=== PATIENT | male | born 1935 | race Caucasian/White ===

== ENCOUNTER 2016-07-10 05:09 | Inpatient (IN) | payer MEDICARE ==
--- NOTE | 2016-07-09 16:55 | Pre-Procedure Note/Attestation ---
Pre-Procedure Note/Attestation Complete Prior to Procedure Planned Procedure: right Procedure Narrative: Rt total knee arthroplasty Indications for Procedure Pre-Operative Diagnosis: rt knee arthritis Attestation I attest that I discussed the nature of the procedure; its benefits; risks and complications; and alternatives (and the risks and benefits of such alternatives ), prior to the procedure, with the patient (or the patient's legal outside sales account representative). I attest that, if there was a reasonable possibility of needing a blood transfusion, the patient (or the patient's legal outside sales account representative) was given the [facility] standardized written summary, pursuant to the [place] Blood Safety Act ([place] Health and Safety Code # 1645, as amended). I attest that I re-evaluated the patient just prior to the surgery and that there has been no change in the patient's H&P, except as documented below:NONE NELSON ANDERSON Jul 09, 2016 16:55
[2016-07-10] VITALS (13 sets, daily range): BP systolic 128–150; BP diastolic 62–69
[~2016-07-10] VITALS: Ht 172.7 cm; Wt 77.6 kg
[~2016-07-10 05:09] MED LIST: ACYCLOVIR400 MG ORAL; ASPIRIN325 MG ORAL; CRESTOR10 M2 ORAL; EPZICOM TABLET1 EAC1 ORAL; HYDROCHLOROTHIA25 MG ORAL; METOPROLOL SUCC50 MG ORAL; NEVIRAPINE ER400 MG PO; PROSCAR5 MG ORAL; TAMSULOSIN HCL0.4 MG ORAL; VIT C PO
[2016-07-10] MEDS ORDERED: oxyCONTIN 20mg tab ORAL ONE (06:00)
[2016-07-10] MEDS ORDERED: celeBREX 200mg Cap **SURGERY PATIENTS ONLY ORAL ONE (06:00)
[2016-07-10] MEDS ORDERED: ceFAZolin 1gm/50ml Premix 50 ML IV ONE (06:00)
[2016-07-10] MEDS ORDERED: Ropivacaine 5mg/ml Vial 20ml INJ ONE (06:49)
[2016-07-10] MEDS ORDERED: Dexamethasone 4mg/ml vial ONE (07:00)
[2016-07-10] MEDS ORDERED: Propofol 10mg/ml 20ml IV ONE (07:00)
[2016-07-10] MEDS ORDERED: NS Irrig 1000ml ONE (07:00)
[2016-07-10] MEDS ORDERED: Sterile Water For Irrig 2000ml IRRIG ONE (07:00)
[2016-07-10] MEDS ORDERED: Midazolam 2mg/2ml Inj ONE (07:00)
[2016-07-10] MEDS ORDERED: fentaNYL 100 mcg/2 mL IV ONE (07:00)
[2016-07-10] MEDS ORDERED: NS Irrig 2000ml IRRIG ONE (07:00)
[2016-07-10] MEDS ORDERED: LR 1000ml ONE (07:00)
[2016-07-10] MEDS ORDERED: LR 1000ml 1,000 ML IVLG SCH (07:31)
[2016-07-10] MEDS ORDERED: Labetalol 5mg/ml 20ml vial IV PRN (07:45)
[2016-07-10] MEDS ORDERED: Meperidine 25mg/ml Inj IV PRN (07:45)
[2016-07-10] MEDS ORDERED: Hydromorphone 0.5mg/0.5ml inj IVP PRN (07:45)
[2016-07-10] MEDS: Bacitracin 50000 Units Vial ONE ×2 (07:49→08:20)
--- NOTE | 2016-07-10 07:52 | Anethesia Preoperative Eval ---
Anesthesia Pre-op PMH/ROS General Date of Evaluation: Jul 10, 2016 Time of Evaluation: 06:50 Anesthesiologist: Karissa ASA Score: ASA 3 Mallampati Score Class I : Soft palate, uvula, fauces, pillars visible Class II: Soft palate, uvula, fauces visible Class III: Soft palate, base of uvula visible Class IV: Only hard plate visible Mallampati Classification: Class II Surgeon: Phillip Diagnosis: Right knee osteoarthritis Surgical Procedure: Right total knee arthroplasty Anesthesia History: none Family History: no anesthesia problems Allergies: Coded Allergies: No Known Allergies (Unverified , 07/05/16) Medications: see eMAR Past Medical History Cardiovascular: Reports: HTN Pulmonary: Denies: COPD, LIA, asthma, other Gastrointestinal/Genitourinary: Denies: CRI, ESRD, GERD, other Neurologic/Psychiatric: Denies: CVA, TIA, dementia, depression/anxiety, other Endocrine: Denies: DM, hypothyroidism, other, steroids HEENT: Denies: [place] (L), [place] (R), cataract (L), cataract (R), glaucoma, other Hematology/Immune: Denies: DVT, anemia, bleeding disorder, other Musculoskeletal/Integumentary: Denies: DDD, DJD, OA, RA, edema, other PMH Narrative: HTN, CAD s/p stent, HIV, BPH PSxH Narrative: Cardiac stent 2001, Left TKR Anesthesia Pre-op Phys. Exam Physician Exam Last Vital Signs Date Time Temp Pulse Resp B/P Pulse Ox O2 Delivery O2 Flow Rate FiO2 07/10/16 05:45 97.9 68 16 149/67 95 Room Air Constitutional: NAD Neurologic: CN 2-12 intact Cardiovascular: RRR Respiratory: CTA Gastrointestinal: S/NT/ND Airway Exam Mallampati Score: Class II MO: full ROM: full Teeth: intact Dentures: no lower, no upper SILVIA ABDALLA D.O. Jul 10, 2016 07:52
[2016-07-10] MEDS ORDERED: Bupivacaine w/Epi 0.5% 30ml Vial INJ ONE (07:59)
--- NOTE | 2016-07-10 09:35 | Brief Operative Note ---
Immediate Post Operative Note Operative Note Chief Complaint: rt knee pain Pre-op Diagnosis: rt knee arthritis Procedure: rt TKA Post-op Diagnosis: same as pre-op Findings: consistent w/pre-op dx studies Surgeon: md Phillip [employer] Internship: [employer] Anesthesiologist: MD Karissa Anesthesia: general, local Specimen: yes Complications: none Condition: stable Estimated Blood Loss: minimal Drains: none Implant(s) used?: Yes - MIRIAN Kay Jul 10, 2016 09:35
--- NOTE | 2016-07-10 09:48 | Immediate Post-Op Evaluation ---
Immediate Post-Op Evalulation Immediate Post-Op Evalulation Procedure: Right total knee arthroplasty Date of Evaluation: Jul 10, 2016 Time of Evaluation: 09:47 IV Fluids: 1200ml Blood Products: none Estimated Blood Loss: 100ml Urinary Output: 250ml Blood Pressure Systolic: 144 Blood Pressure Diastolic: 65 Pulse Rate: 77 Respiratory Rate: 16 O2 Sat by Pulse Oximetry: 98 Temperature (Fahrenheit): 98 Pain Score (1-10): 0 Nausea: No Vomiting: No Complications none Patient Status: awake, reacts Hydration Status: adequate Drug: ancef 1gm Given Within 1 Hr of Incision: Yes Time Given: 07:30 SILVIA ABDALLA D.O. Jul 10, 2016 09:48
[2016-07-10] MEDS ORDERED: HYDROmorphone 1mg/ml Carpuject SUBQ PRN (12:00)
[2016-07-10] MEDS ORDERED: Norco 5mg/325mg tab ORAL PRN (12:00)
[2016-07-10] MEDS ORDERED: Norco 7.5mg/325mg tab ORAL PRN (12:00)
[2016-07-10] MEDS ORDERED: Milk of Magnesia 30ml Ud ORAL PRN (12:00)
[2016-07-10] MEDS: oxyCONTIN 20mg tab ORAL SCH ×2 (12:05→22:16)
[2016-07-10] MEDS: Docusate 100mg cap ORAL SCH ×2 (12:06→17:35)
--- NOTE | 2016-07-10 12:39 | Diagnostic Imaging Report ---
Indications: Postoperative Technique: Two views of the knee Comparison:None Findings: Two postoperative views of the right knee demonstrate total knee arthroplasty, good anatomic alignment of the prosthesis. There is postsurgical soft tissue air Impression: Postoperative right knee, no unusual features.
[2016-07-10] MEDS: D5 1/2NS w/KCl 20mEq 1,000 ML IV SCH (13:07)
[2016-07-10] MEDS: ASCORBIC ACID ORAL SCH ×2 (13:44→16:14)
[2016-07-10] MEDS: [UNRECOGNIZED DRUG - OTHER] ORAL SCH ×2 (13:44→16:14)
[2016-07-10] MEDS: ceFAZolin sod 1 GM in D5W 55 ML IV SCH (16:13)
[2016-07-10] MEDS: Tamsulosin 0.4mg cap ORAL SCH (22:15)
[2016-07-10] MEDS: CRESTOR 10 MG ORAL SCH (22:16)
[2016-07-11] VITALS: BP 146/69
[2016-07-11] MEDS: ceFAZolin sod 1 GM in D5W 55 ML IV SCH (00:13)
[2016-07-11 04:00] VITALS: BP 156/72
[2016-07-11] MEDS: D5 1/2NS w/KCl 20mEq 1,000 ML IV SCH ×2 (04:38→16:42)
[2016-07-11 07:03] LABS: BASOPHILS % (AUTO) 0.1 % (0.0-2.0); EOSINOPHILS % (AUTO) 0.1 % (0.0-3.0); LYMPHOCYTES % (AUTO) 12.1 % (20.0-45.0); MEAN CORPUSCULAR HEMOGLOBIN 38.1 PG (27.0-31.0); MEAN CORPUSCULAR HGB CONC 36.8 G/DL (32.0-36.0); MEAN CORPUSCULAR VOLUME 104 FL (80-99); MEAN PLATELET VOLUME 7.7 FL (6.5-10.1); MONOCYTES % (AUTO) 10.2 % (1.0-10.0); NEUTROPHILS % (AUTO) 77.5 % (45.0-75.0); PLATELET COUNT 160 K/UL (150-450); RED BLOOD COUNT 3.51 M/UL (4.70-6.10); RED CELL DISTRIBUTION WIDTH 11.7 % (11.6-14.8); WHITE BLOOD COUNT 9.7 K/UL (4.8-10.8)
[2016-07-11] MEDS: ASCORBIC ACID ORAL SCH ×3 (07:37→17:36)
[2016-07-11] MEDS: [UNRECOGNIZED DRUG - OTHER] ORAL SCH ×3 (07:37→17:36)
[2016-07-11 08:00] VITALS: BP 138/57
--- NOTE | 2016-07-11 08:04 | Orthopedic Progress Note ---
Orthopedic - Progress Note Subjective Symptoms: improved - pain last night. improved today Objective Vital Signs Laboratory Tests Test 07/11/16 05:30 White Blood Count 9.7 K/UL (4.8-10.8) Red Blood Count 3.51 M/UL (4.70-6.10) L Hemoglobin 13.4 G/DL (14.2-18.0) L Hematocrit 36.4 % (42.0-52.0) L Mean Corpuscular Volume 104 FL (80-99) H Mean Corpuscular Hemoglobin 38.1 PG (27.0-31.0) H Mean Corpuscular Hemoglobin Concent 36.8 G/DL (32.0-36.0) H Red Cell Distribution Width 11.7 % (11.6-14.8) Platelet Count 160 K/UL (150-450) Mean Platelet Volume 7.7 FL (6.5-10.1) Neutrophils (%) (Auto) 77.5 % (45.0-75.0) H Lymphocytes (%) (Auto) 12.1 % (20.0-45.0) L Monocytes (%) (Auto) 10.2 % (1.0-10.0) H Eosinophils (%) (Auto) 0.1 % (0.0-3.0) Basophils (%) (Auto) 0.1 % (0.0-2.0) Last 24 Hour Vital Signs Date Time Temp Pulse Resp B/P Pulse Ox O2 Delivery O2 Flow Rate FiO2 07/11/16 04:00 97.9 71 18 156/72 96 Nasal Cannula 2.0 07/11/16 00:00 97.9 65 18 146/69 97 Nasal Cannula 2.0 07/10/16 20:00 97.9 68 18 150/64 98 Nasal Cannula 3.0 07/10/16 16:00 97.5 71 19 132/62 95 Nasal Cannula 3.0 07/10/16 16:00 98 Nasal Cannula 3.0 32 07/10/16 16:00 Nasal Cannula 3.0 32 07/10/16 12:02 97.5 71 19 128/63 98 Room Air 07/10/16 11:00 97.7 71 18 128/63 95 Nasal Cannula 3.0 07/10/16 11:00 98.0 07/10/16 10:45 98.0 76 18 136/67 96 Nasal Cannula 3.0 07/10/16 10:30 73 17 129/68 93 Nasal Cannula 3.0 07/10/16 10:15 76 19 148/69 94 Nasal Cannula 3.0 07/10/16 10:00 77 16 148/69 97 Simple Mask 6.0 07/10/16 09:55 77 16 144/69 97 Simple Mask 6.0 07/10/16 09:50 79 12 140/67 96 Simple Mask 6.0 07/10/16 09:48 77 16 98 07/10/16 09:45 76 19 144/65 97 Simple Mask 6.0 07/10/16 09:40 98.7 77 13 139/68 99 Simple Mask 6.0 I&O Intake and Output 07/10/16 07/11/16 19:00 07:00 Intake Total 2435 ml 705 ml Output Total 800 ml 2950 ml Balance 1635 ml -2245 ml Intake Oral 360 ml 480 ml IV Total 2075 ml 225 ml Output Urine Total 700 ml 2950 ml Estimated Blood Loss 100 ml Wound: clean, dry, intact Drains: none Neuro Status: normal Vascular Status: normal Additional Comments Xray excellent Assessment Post-op Diagnosis POD 1 Procedure Performed rt TKA Plan Plan: PT, pain management, discharge plan - [facility] on saturday MIRIAN GRANT Jul 11, 2016 08:04
[2016-07-11] MEDS: oxyCONTIN 20mg tab ORAL SCH ×2 (08:41→20:24)
[2016-07-11] MEDS: NEVIRAPINE 400 MG ORAL SCH (08:41)
[2016-07-11] MEDS: Docusate 100mg cap ORAL SCH ×3 (08:41→17:36)
[2016-07-11] MEDS: celeBREX 200mg Cap **SURGERY PATIENTS ONLY ORAL SCH (08:41)
[2016-07-11] MEDS: LUBRICANT EYE DROPS BOTH EYES PRN (08:42)
[2016-07-11] MEDS: LUBRICANT EYE DROPS BOTH EYES SCH (08:42)
[2016-07-11] MEDS: [UNRECOGNIZED DRUG - SUPPLY] BOTH EYES SCH (08:42)
[2016-07-11] MEDS: Epzicom tab ORAL SCH (08:43)
[2016-07-11] MEDS: Enoxaparin 30mg Inj SUBQ SCH ×2 (08:49→20:27)
[2016-07-11 12:00] VITALS: BP 134/58
--- NOTE | 2016-07-11 14:06 | 48 Hour Post Anesthesia Eval ---
Post Anesthesia Evaluation Procedure: Right total knee arthroplasty Date of Evaluation: Jul 11, 2016 Time of Evaluation: 14:05 Blood Pressure Systolic: 150 0: 80 Pulse Rate: 74 Respiratory Rate: 20 Temperature (Fahrenheit): 98 O2 Sat by Pulse Oximetry: 98 Airway: patent Nausea: No Vomiting: No Pain Intensity: 2 Hydration Status: adequate Cardiopulmonary Status: stable Mental Status/LOC: patient returned to baseline Follow-up Care/Observations: na Post-Anesthesia Complications: na Follow-up care needed: N/A HERMELINDA SCHUMACHER M.D. Jul 11, 2016 14:06
[2016-07-11 16:08] VITALS: BP 137/56
--- NOTE | 2016-07-11 18:38 | Operative Note - Dictated ---
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 PROCEDURE: Right total knee arthroplasty using [employer] Person[employer] system, size 8 femur, size G tibia, 10 mm tibial poly insert, and a 35 mm patellar all poly component all cemented. SURGEON: Pietro Fisher M.D. COATING INSPECTOR: Georgiana Johnson PA-C. ANESTHESIOLOGIST: Dr. Hancock. ANESTHESIA: General endotracheal anesthesia combined with adductor block. ESTIMATED BLOOD LOSS: Less than 100 mL. TOURNIQUET TIME: 70 minutes. COMPLICATIONS: None. BRIEF HISTORY: The patient is a pleasant 81-year-old gentleman who has had ongoing right knee pain. He had valgus deformity. He has had decreased range of motion and stiffness. He failed all nonoperative treatment. After full discussion of the risks and benefits of the surgery and complications associated with it including infection, bleeding, neurovascular complication, possibility of loss of motion, DVT, PEs, possible need for resection arthroplasty or revision arthroplasty, and other complications that may arise as well as wound dehiscence and requiring further surgery and debridement, he opted for surgical treatment as described above. OPERATIVE PROCEDURE: The patient was brought to the operating room and was placed supine. All pressure points were well padded. General endotracheal anesthesia was induced. An adductor block was performed. The right knee was prepped and draped in usual sterile fashion. The leg was exsanguinated and tourniquet was inflated to 275 mmHg. A standard anterior approach to the knee was undertaken and medial parapatellar arthrotomy was performed. The kneecap was everted. Medial releases were performed. Knee was flexed and ACL and PCL were resected. Intramedullary access was obtained using a drill. An intramedullary guide was placed in. A distal 5-degree valgus cut was performed without any complication. A sizing block was then applied and size 8 appeared to be the right size. The cutting block was placed in about 3 degrees of external rotation. Judging from intercondylar access, anterior, posterior, and chamfer cuts were performed. At this point, the femoral component was then applied and appeared to be an excellent fit. Peg holes were drilled. At this point, care was given to the tibia. Posterior, medial, and lateral retractors were placed in. Menisci were removed. The extramedullary guide was applied and while protecting the ligaments as well as patellar tendon, 2 mm was taken off the lateral side which was the most involved side. The slope was re-created and an anatomical axis was re-created. The cut was performed without any complications. Wounds were thoroughly irrigated. The flexion and extension gap was checked and appeared to be equal. At this point, a spinal needle was placed and the posterior capsule was injected with 0.5% Marcaine with epinephrine. At this point, sizing of the tibia was performed and size G appeared to be the right size. The tibial component was placed in about 3 degrees of external rotation and central hole and the stem was then punched in without any complications. At this point, a 10 mm poly was applied and there was full flexion, full extension, excellent stability at 0, 30 degrees, 45 degrees, and 90 degrees of range of motion. At this point, care was given to the patella. The patella was everted. It measured 26 mm in thickness. At this point, a freehand cut of the patella was performed and 50 mm patella was remaining. At this point, peg holes were drilled and 35 mm patella appeared to be the right size. A 35 mm patella was then applied and clamped down. This locked the patellar component in good position. At this point, the knee was placed through range of motion. There was excellent patellofemoral tracking. At this point, all wounds were thoroughly irrigated. All trial components were removed. The cement was mixed and the tibial component, femoral component, and patellar components were cemented without any complications. All excess cement was removed. At this point, sizing was performed and 10 mm poly appeared to be the right size. Therefore at this point, a 10 mm poly was locked in without any complication. Range of motion was again excellent as described and there was excellent patellofemoral tracking as well as very good stability at 0, 30 degrees, 45 degrees, and 90 degrees of flexion. At this point, all wounds were thoroughly irrigated using copious amount of fluid. The tourniquet was deflated. Bleeders were all stopped. Extensor mechanism was closed using #1 Vicryl suture. Subcutaneous tissue was closed using 2-0 Vicryl suture. Skin was closed using 3-0 Monocryl suture as well as Dermabond. The patient was placed in a sterile dressing and a knee immobilizer, and was taken to recovery room in stable condition. Pietro Fisher M.D. DR: Saeed JOB#: [id number] CC: ASHLEY
[2016-07-11 20:00] VITALS: BP 124/51
[2016-07-11] MEDS: CRESTOR 10 MG ORAL SCH (20:25)
[2016-07-11] MEDS: Tamsulosin 0.4mg cap ORAL SCH (20:26)
[2016-07-12] MEDS: D5 1/2NS w/KCl 20mEq 1,000 ML IV SCH (04:39)
[2016-07-12 07:21] LABS: BASOPHILS % (AUTO) 0.3 % (0.0-2.0); EOSINOPHILS % (AUTO) 0.2 % (0.0-3.0); LYMPHOCYTES % (AUTO) 14.9 % (20.0-45.0); MEAN CORPUSCULAR HEMOGLOBIN 36.2 PG (27.0-31.0); MEAN CORPUSCULAR HGB CONC 34.3 G/DL (32.0-36.0); MEAN CORPUSCULAR VOLUME 106 FL (80-99); MEAN PLATELET VOLUME 7.7 FL (6.5-10.1); MONOCYTES % (AUTO) 12.1 % (1.0-10.0); NEUTROPHILS % (AUTO) 72.6 % (45.0-75.0); PLATELET COUNT 151 K/UL (150-450); RED BLOOD COUNT 3.28 M/UL (4.70-6.10); WHITE BLOOD COUNT 9.2 K/UL (4.8-10.8)
--- NOTE | 2016-07-12 07:27 | Orthopedic Progress Note ---
Orthopedic - Progress Note Subjective Additional Comments Doing well with his knee. Slowly ambulating. Using the CPM. Pain control with po and im shots Objective Vital Signs Last 24 Hour Vital Signs Date Time Temp Pulse Resp B/P Pulse Ox O2 Delivery O2 Flow Rate FiO2 07/11/16 20:00 98.2 71 20 124/51 92 Room Air 07/11/16 16:08 98.1 67 19 137/56 90 Room Air 07/11/16 14:06 74 20 98 07/11/16 12:00 97.9 69 18 134/58 93 Room Air 07/11/16 08:41 71 156/72 07/11/16 08:00 97.8 70 18 138/57 96 Room Air I&O Intake and Output 07/11/16 07/12/16 19:00 07:00 Intake Total 585 ml 825 ml Output Total 375 ml Balance 210 ml 825 ml Intake Oral 360 ml IV Total 225 ml 825 ml Output Urine Total 375 ml # Voids 2 Wound: clean, dry Drains: hemovac Neuro Status: normal Vascular Status: normal Assessment Post-op Diagnosis Doing well s/p Right TKA Plan Plan: PT, pain management, discharge plan Additional Comments Anticipate D/C to rehab tomorrow. Dressing Changes today NELSON ANDERSON Jul 12, 2016 07:27
[2016-07-12] MEDS: [UNRECOGNIZED DRUG - OTHER] ORAL SCH ×3 (07:50→16:47)
[2016-07-12] MEDS: ASCORBIC ACID ORAL SCH ×3 (07:50→16:47)
[2016-07-12 08:00] VITALS: BP 129/59
[2016-07-12] MEDS: Epzicom tab ORAL SCH (08:50)
[2016-07-12] MEDS: NEVIRAPINE 400 MG ORAL SCH (08:50)
[2016-07-12] MEDS: celeBREX 200mg Cap **SURGERY PATIENTS ONLY ORAL SCH (08:52)
[2016-07-12] MEDS: Docusate 100mg cap ORAL SCH ×3 (08:52→17:51)
[2016-07-12] MEDS: LUBRICANT EYE DROPS BOTH EYES PRN (08:54)
[2016-07-12] MEDS: [UNRECOGNIZED DRUG - SUPPLY] BOTH EYES SCH (08:54)
[2016-07-12] MEDS: LUBRICANT EYE DROPS BOTH EYES SCH (08:54)
[2016-07-12] MEDS: oxyCONTIN 20mg tab ORAL SCH ×2 (08:55→21:00)
[2016-07-12] MEDS: Enoxaparin 30mg Inj SUBQ SCH ×2 (08:59→20:17)
[2016-07-12 12:00] VITALS: BP 116/55
[2016-07-12 15:53] VITALS: BP 130/70
[2016-07-12 20:00] VITALS: BP 126/54
[2016-07-12] MEDS: Tamsulosin 0.4mg cap ORAL SCH (20:14)
[2016-07-12] MEDS: CRESTOR 10 MG ORAL SCH (20:16)
[2016-07-13 04:00] VITALS: BP 135/59
[2016-07-13] MEDS: ASCORBIC ACID ORAL SCH ×3 (06:38→17:23)
[2016-07-13] MEDS: [UNRECOGNIZED DRUG - OTHER] ORAL SCH ×3 (06:38→17:23)
[2016-07-13 06:52] LABS: BASOPHILS % (AUTO) 0.6 % (0.0-2.0); EOSINOPHILS % (AUTO) 0.4 % (0.0-3.0); LYMPHOCYTES % (AUTO) 16.4 % (20.0-45.0); MEAN CORPUSCULAR HEMOGLOBIN 35.8 PG (27.0-31.0); MEAN CORPUSCULAR HGB CONC 34.3 G/DL (32.0-36.0); MEAN CORPUSCULAR VOLUME 104 FL (80-99); MEAN PLATELET VOLUME 7.2 FL (6.5-10.1); NEUTROPHILS % (AUTO) 72.8 % (45.0-75.0); PLATELET COUNT 130 K/UL (150-450); RED BLOOD COUNT 3.06 M/UL (4.70-6.10); RED CELL DISTRIBUTION WIDTH 11.8 % (11.6-14.8); WHITE BLOOD COUNT 7.8 K/UL (4.8-10.8)
[2016-07-13 08:00] VITALS: BP 132/60
--- NOTE | 2016-07-13 08:27 | Orthopedic Progress Note ---
Orthopedic - Progress Note Subjective Symptoms: improved Objective Vital Signs Laboratory Tests Test 07/13/16 06:30 White Blood Count 7.8 K/UL (4.8-10.8) Red Blood Count 3.06 M/UL (4.70-6.10) L Hemoglobin 10.9 G/DL (14.2-18.0) L Hematocrit 31.8 % (42.0-52.0) L Mean Corpuscular Volume 104 FL (80-99) H Mean Corpuscular Hemoglobin 35.8 PG (27.0-31.0) H Mean Corpuscular Hemoglobin Concent 34.3 G/DL (32.0-36.0) Red Cell Distribution Width 11.8 % (11.6-14.8) Platelet Count 130 K/UL (150-450) L Mean Platelet Volume 7.2 FL (6.5-10.1) Neutrophils (%) (Auto) 72.8 % (45.0-75.0) Lymphocytes (%) (Auto) 16.4 % (20.0-45.0) L Monocytes (%) (Auto) 10.0 % (1.0-10.0) Eosinophils (%) (Auto) 0.4 % (0.0-3.0) Basophils (%) (Auto) 0.6 % (0.0-2.0) Last 24 Hour Vital Signs Date Time Temp Pulse Resp B/P Pulse Ox O2 Delivery O2 Flow Rate FiO2 07/13/16 04:56 98.1 07/13/16 04:00 99.5 101 20 135/59 92 Room Air 07/12/16 20:00 98.2 111 19 126/54 91 Room Air 07/12/16 15:53 98.1 70 18 130/70 94 Room Air 07/12/16 12:00 98.1 72 18 116/55 91 Room Air 07/12/16 08:51 95 129/59 I&O Intake and Output 07/12/16 07/13/16 19:00 07:00 Intake Total 360 ml Output Total 1100 ml Balance -740 ml Intake Oral 360 ml Output Urine Total 1100 ml # Voids 5 # Bowel Movements 2 Wound: clean, dry, intact Drains: none Neuro Status: normal Vascular Status: normal Assessment Post-op Diagnosis POD 3 Procedure Performed rt TKA Plan Plan: discharge plan - to [facility] today./ f/u 7-10 days MIRIAN GRANT Jul 13, 2016 08:27
[2016-07-13] MEDS: [UNRECOGNIZED DRUG - SUPPLY] BOTH EYES SCH (08:30)
[2016-07-13] MEDS: LUBRICANT EYE DROPS BOTH EYES SCH (08:31)
[2016-07-13] MEDS: celeBREX 200mg Cap **SURGERY PATIENTS ONLY ORAL SCH (08:32)
[2016-07-13] MEDS: oxyCONTIN 20mg tab ORAL SCH ×2 (08:32→21:00)
[2016-07-13] MEDS: NEVIRAPINE 400 MG ORAL SCH (08:33)
[2016-07-13] MEDS: Epzicom tab ORAL SCH (08:33)
[2016-07-13] MEDS: Enoxaparin 30mg Inj SUBQ SCH ×2 (08:34→21:00)
[2016-07-13] MEDS: Docusate 100mg cap ORAL SCH ×3 (08:34→17:23)
--- NOTE | 2016-07-13 09:48 | Discharge Summary 2 SIG ---
DATE OF ADMISSION: 07/10/2016 DATE OF DISCHARGE: 07/13/2016 HOSPITAL COURSE: The patient is a pleasant 81-year-old gentleman who had right knee arthritis and was admitted after right total knee arthroplasty. The patient tolerated the procedure well and had a benign hospital course. He was seen by physical therapy and pain was well controlled at the time of discharge. On 07/13/2016, the patient being discharged to rehabilitation center at [facility] inpatient physical therapy and rehabilitation before being discharge to home. On date of discharge, the patient's vital signs were stable. Laboratory work was stable and he was tolerating good oral diet and oral pain medication. He will be discharged to rehabilitation and will follow up with him in the office in 7 to 10 days. Pietro Fisher M.D. I have been assigned to dictate discharge summary on this account and I was not involved in the patient's management. An Rahman DR: GRANT JOB#: [id number] CC:
[2016-07-13] MEDS ORDERED: LOVENOX10 MG SUBQ (10:53)
[2016-07-13] MEDS ORDERED: COLACE100 MG ORAL (10:53)
[2016-07-13] MEDS ORDERED: FERROUS SULFAT325 MG ORAL (10:54)
[2016-07-13] MEDS ORDERED: CELEBREX200 MG ORAL (10:54)
[2016-07-13] MEDS ORDERED: NORCO 5-325 TA1 EACH ORAL (10:55)
[2016-07-13] MEDS ORDERED: NORCO 7.5-3251 EACH ORAL (10:56)
[2016-07-13] MEDS ORDERED: RESTORIL7.5 MG ORAL (10:57)
[2016-07-13] MEDS ORDERED: OXYCONTIN20 MG ORAL (10:57)
[2016-07-13 11:58] VITALS: BP 113/50
[2016-07-13 16:00] VITALS: BP 128/88
--- NOTE | 2016-07-13 19:34 | Consultation ---
Consult Note Consult Note S: Patient followed by me as outpatient for chronic stable HIV infection. He has had chronic knee pain for years and decided to have a TKR on the right; this was done by Dr. Fisher on July 10. The surgery was uneventful, as was the postoperative course until this morning when he had a temp to 101.7. He was given tylenol by the nurse and has been afebrile since. He complained of feeling "sweaty" in the morning but has no current complaints other than the expected pain related to the surgery. O: WNWD male NAD. VSS with one fever spike noted above. HEENT: nc/at; ptosis OS Lungs: clear Cor: reg Abd: soft Ext: right knee bandaged but reportedly wound was clear when dressed this morning Labs Test 07/11/16 05:30 07/12/16 06:00 07/13/16 06:30 White Blood Count 9.7 K/UL (4.8-10.8) 9.2 K/UL (4.8-10.8) 7.8 K/UL (4.8-10.8) Red Blood Count 3.51 M/UL (4.70-6.10) 3.28 M/UL (4.70-6.10) 3.06 M/UL (4.70-6.10) Hemoglobin 13.4 G/DL (14.2-18.0) 11.9 G/DL (14.2-18.0) 10.9 G/DL (14.2-18.0) Hematocrit 36.4 % (42.0-52.0) 34.6 % (42.0-52.0) 31.8 % (42.0-52.0) Mean Corpuscular Volume 104 FL (80-99) 106 FL (80-99) 104 FL (80-99) Mean Corpuscular Hemoglobin 38.1 PG (27.0-31.0) 36.2 PG (27.0-31.0) 35.8 PG (27.0-31.0) Mean Corpuscular Hemoglobin Concent 36.8 G/DL (32.0-36.0) 34.3 G/DL (32.0-36.0) 34.3 G/DL (32.0-36.0) Red Cell Distribution Width 11.7 % (11.6-14.8) 12.0 % (11.6-14.8) 11.8 % (11.6-14.8) Platelet Count 160 K/UL (150-450) 151 K/UL (150-450) 130 K/UL (150-450) Mean Platelet Volume 7.7 FL (6.5-10.1) 7.7 FL (6.5-10.1) 7.2 FL (6.5-10.1) Neutrophils (%) (Auto) 77.5 % (45.0-75.0) 72.6 % (45.0-75.0) 72.8 % (45.0-75.0) Lymphocytes (%) (Auto) 12.1 % (20.0-45.0) 14.9 % (20.0-45.0) 16.4 % (20.0-45.0) Monocytes (%) (Auto) 10.2 % (1.0-10.0) 12.1 % (1.0-10.0) 10.0 % (1.0-10.0) Eosinophils (%) (Auto) 0.1 % (0.0-3.0) 0.2 % (0.0-3.0) 0.4 % (0.0-3.0) Basophils (%) (Auto) 0.1 % (0.0-2.0) 0.3 % (0.0-2.0) 0.6 % (0.0-2.0) Assessment/Plan A: fever spike POD 4. Clearly there is a broad differential diagnosis: some likely (atelectasis, inflammatory response to surgery) and other less likely ( wound infection - too soon; UTI, pneumonia - no symptoms; DVT - pt on compression stockings). Rec: 1) hold off on discharge pending how he does tonight 2) check BCs 3) CXR 4) encourage incentive spirometry 5) RAH, urine culture ANGELO HILL Jul 13, 2016 19:34
[2016-07-13 20:00] VITALS: BP 144/63
[2016-07-13 21:12] LABS: APPEARANCE,URINE CLEAR; KETONES,URINE NEGATIVE (NEGATIVE); LEUKOCYTE ESTERASE ,URINE NEGATIVE (NEGATIVE); NITRITE,URINE NEGATIVE (NEGATIVE); PH,URINE 6 (4.5-8.0); PROTEIN,URINE 2+ (NEGATIVE); UROBILINOGEN,URINE NORMAL MG/DL (0.0-1.0)
[2016-07-13] MEDS: CRESTOR 10 MG ORAL SCH (21:15)
[2016-07-13] MEDS: Tamsulosin 0.4mg cap ORAL SCH (21:15)
[2016-07-13 21:21] LABS: WBC,URINE 0-2 /HPF (0 - 0)
[2016-07-13 21:22] LABS: BACTERIA,URINE FEW /HPF
[2016-07-14] VITALS: BP 144/62
[2016-07-14 04:00] VITALS: BP 137/56
[2016-07-14] MEDS: [UNRECOGNIZED DRUG - OTHER] ORAL SCH ×2 (06:30→07:58)
[2016-07-14] MEDS: ASCORBIC ACID ORAL SCH ×2 (06:30→07:58)
[2016-07-14 07:32] LABS: BASOPHILS % (AUTO) 0.3 % (0.0-2.0); EOSINOPHILS % (AUTO) 0.7 % (0.0-3.0); LYMPHOCYTES % (AUTO) 14.5 % (20.0-45.0); MEAN CORPUSCULAR HEMOGLOBIN 35.4 PG (27.0-31.0); MEAN CORPUSCULAR HGB CONC 34.4 G/DL (32.0-36.0); MEAN CORPUSCULAR VOLUME 103 FL (80-99); MEAN PLATELET VOLUME 7.5 FL (6.5-10.1); NEUTROPHILS % (AUTO) 76.5 % (45.0-75.0); PLATELET COUNT 169 K/UL (150-450); RED BLOOD COUNT 2.98 M/UL (4.70-6.10); RED CELL DISTRIBUTION WIDTH 11.6 % (11.6-14.8); WHITE BLOOD COUNT 6.4 K/UL (4.8-10.8)
[2016-07-14 08:00] VITALS: BP 146/68
[2016-07-14] MEDS: NEVIRAPINE 400 MG ORAL SCH (08:44)
[2016-07-14] MEDS: Enoxaparin 30mg Inj SUBQ SCH (08:44)
[2016-07-14] MEDS: Docusate 100mg cap ORAL SCH ×2 (08:45→13:00)
[2016-07-14] MEDS: Epzicom tab ORAL SCH (08:45)
[2016-07-14] MEDS: oxyCONTIN 20mg tab ORAL SCH (08:46)
[2016-07-14] MEDS: celeBREX 200mg Cap **SURGERY PATIENTS ONLY ORAL SCH ×2 (08:47→10:24)
[2016-07-14] MEDS: LUBRICANT EYE DROPS BOTH EYES SCH (08:48)
[2016-07-14] MEDS: [UNRECOGNIZED DRUG - SUPPLY] BOTH EYES SCH (08:49)
[2016-07-14 12:00] VITALS: BP 130/54
--- NOTE | 2016-07-14 12:09 | General Progress Note ---
Progress Note Progress Note S: Feels OK, no new symptoms; pain control is good although knee feels "stiff." O: VSS Afebrile. HEENT: no change Lungs: clear Cor: reg Abd: soft, NT Ext: wound well bandaged, no seepage Labs Test 07/12/16 06:00 07/13/16 06:30 07/13/16 20:40 07/14/16 06:50 White Blood Count 9.2 K/UL (4.8-10.8) 7.8 K/UL (4.8-10.8) 6.4 K/UL (4.8-10.8) Red Blood Count 3.28 M/UL (4.70-6.10) 3.06 M/UL (4.70-6.10) 2.98 M/UL (4.70-6.10) Hemoglobin 11.9 G/DL (14.2-18.0) 10.9 G/DL (14.2-18.0) 10.5 G/DL (14.2-18.0) Hematocrit 34.6 % (42.0-52.0) 31.8 % (42.0-52.0) 30.7 % (42.0-52.0) Mean Corpuscular Volume 106 FL (80-99) 104 FL (80-99) 103 FL (80-99) Mean Corpuscular Hemoglobin 36.2 PG (27.0-31.0) 35.8 PG (27.0-31.0) 35.4 PG (27.0-31.0) Mean Corpuscular Hemoglobin Concent 34.3 G/DL (32.0-36.0) 34.3 G/DL (32.0-36.0) 34.4 G/DL (32.0-36.0) Red Cell Distribution Width 12.0 % (11.6-14.8) 11.8 % (11.6-14.8) 11.6 % (11.6-14.8) Platelet Count 151 K/UL (150-450) 130 K/UL (150-450) 169 K/UL (150-450) Mean Platelet Volume 7.7 FL (6.5-10.1) 7.2 FL (6.5-10.1) 7.5 FL (6.5-10.1) Neutrophils (%) (Auto) 72.6 % (45.0-75.0) 72.8 % (45.0-75.0) 76.5 % (45.0-75.0) Lymphocytes (%) (Auto) 14.9 % (20.0-45.0) 16.4 % (20.0-45.0) 14.5 % (20.0-45.0) Monocytes (%) (Auto) 12.1 % (1.0-10.0) 10.0 % (1.0-10.0) 8.0 % (1.0-10.0) Eosinophils (%) (Auto) 0.2 % (0.0-3.0) 0.4 % (0.0-3.0) 0.7 % (0.0-3.0) Basophils (%) (Auto) 0.3 % (0.0-2.0) 0.6 % (0.0-2.0) 0.3 % (0.0-2.0) Urine Color Yellow Urine Appearance Clear Urine pH 6 (4.5-8.0) Urine Specific [place] 1.010 (1.005-1.035) Urine Protein 2+ (NEGATIVE) Urine Glucose (UA) Negative (NEGATIVE) Urine Ketones Negative (NEGATIVE) Urine Occult Blood 1+ (NEGATIVE) Urine Nitrite Negative (NEGATIVE) Urine Bilirubin Negative (NEGATIVE) Urine Urobilinogen Normal MG/DL (0.0-1.0) Urine Leukocyte Esterase Negative (NEGATIVE) Urine RBC 2-4 /HPF (0 - 0) Urine WBC 0-2 /HPF (0 - 0) Urine Squamous Epithelial Cells None /LPF (NONE/OCC) Urine Bacteria Few /HPF (NONE) A: Single POD 4 temp spike - no evidence of infection. CXR was not done. WBC and RAH OK. [facility]. Discussed with pt and nurse. ANGELO HILL Jul 14, 2016 12:09
== END 2016-07-14 13:35 | disposition short-term general hospital (02) | DRG 469 ==
LOC: SDSOVERFLO 05:09 → 3E 11:15
PROC: 0SRC0J9 Replacement of Right Knee Joint with Synthetic Substitute, Cemented, Open Approach (ICD-10-PCS; principal; 2016-07-10 07:00)
DX: M17.11 Unilateral primary osteoarthritis, right knee (principal); B20 Human immunodeficiency virus [HIV] disease; I10 Essential (primary) hypertension
CPT/HCPCS: 36415; 81003; 85025; 86850; 86900; 86901; 86920; 87081; 87086; 94003; 94150; 94760; J2180; J2250; J2405